=== PATIENT | female | born 1980 | race Caucasian/White ===

== ENCOUNTER → 2017-08-30 | Outpatient (CLI) | payer BC, OTHER | LOC: COL.RAD 12:14 | DX: R10.11 Right upper quadrant pain (principal); Z90.710 Acquired absence of both cervix and uterus ==

== ENCOUNTER 2024-07-31 08:50 | Day surgery (SDC) | payer OTHER ==
[~2024-07-31] VITALS: Ht 160 cm; Wt 93.3 kg
[2024-07-31] VITALS (12 sets, daily range): BP systolic 101–123; BP diastolic 59–79; PULSE 55–78; TEMP 98–98.5
[~2024-07-31 08:50] MED LIST: LR 1,000 ML IV SCH; Ondansetron 4 MG/2 ML VIAL IV PRN
--- NOTE | 2024-07-31 09:50 | NUR ---
Pt arrived with , states bowels are WNL for the procedure, VSS; reviewed and signed consents, no questions/concerns; reviewed and updated history/meds/pharm/allergies. IV placed to RH, x1 attempt, 20G, LR hanging. To await procedure.
[2024-07-31] MEDS ORDERED: CYMBALTA 60MG60 MG PO (09:52)
[2024-07-31] MEDS ORDERED: BENTYL 10MG10 MG/CAP PO (09:52)
[2024-07-31] MEDS ORDERED: Lidocaine PF 2% (20 MG/ML) 5 ML VIAL ONE (10:15)
[2024-07-31] MEDS ORDERED: dexAMETHasone 10 MG/ML VIAL IV ONE (11:00)
[2024-07-31] MEDS ORDERED: Albuterol 0.083% Neb Soln 2.5 MG/3 ML UD IH SCH (11:15)
[2024-07-31] MEDS ORDERED: fentaNYL 50 MCG/ML 2 ML VIAL IV PRN (12:15)
[2024-07-31] MEDS ORDERED: LORazepam 2 MG/ML 1 ML VIAL IV PRN (12:15)
--- NOTE | 2024-07-31 12:16 | NUR ---
thang came from [facility].patient alert and oriented x4. reports pain to right upper quadrant rating it 4/10. report feeling mildly nauseus, had a bowel movement. family at bedside. patient on room air. call light within reach. bed at lowest position.
[2024-07-31] MEDS ORDERED: Ondansetron 4 MG/2 ML VIAL IV PRN (13:15)
[2024-07-31 13:40] LABS: HEMATOCRIT 42.7 % (37.0-47.0); HEMOGLOBIN 14.4 g/dl (12.5-16.0); MEAN CELL VOLUME 92 fl (80.0-100.0); MEAN CORPUSCULAR HEMOGLOBIN 31 pg (27-31); MEAN CORPUSCULAR HGB CONC 34 g/dl (33.0-37.0); MEAN PLATELET VOLUME 9.4 fl (7.4-10.4); PLATELET COUNT 311 K/mm3 (130-400); RED BLOOD COUNT 4.64 M/mm3 (4.10-5.30); REDCELL DISTRIBUTION WIDTH-CV 12.5 % (11.5-14.5)
[2024-07-31 13:53] LABS: CALCIUM 9.6 mg/dL (8.4-10.2); CREATININE, serum 0.74 mg/dL (0.57-1.11); POTASSIUM 4.2 mEq/L (3.5-4.5)
--- NOTE | 2024-07-31 13:55 | NUR ---
1100- PT BACK FROM ENDO PROCEDURE VIA CART TO BAY 5. MONITORS ON AND ALARMS SET. 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 PT COUGHING QUITE A BIT. SPUTUM SUCTIONED. PT STILL HAVE RUQ PAIN. RESPIRATORY THERAPY AT BEDSIDE HELPING PT WITH A BREATHING TX. DECADRON GIVEN AT THIS TIME IV. CALL LIGHT WITHIN REACH. 1115- DR. CASEY AT BEDSIDE TALKING WITH PT AND . 1130- PT STILL COUGHING. VSS. AT CHAIRSIDE. NO NEEDS AT THIS TIME. 1145- GAVE REPORT TO NURSE ON THE MEDICAL FLOOR. PT WILL BE TRANSFERRING SOON. 1200- PT HAS BEEN TRANSFERRED OFF UNIT TO THE MEDICAL FLOOR. VSS AT THIS TIME. PT IS ALERT AND ORIENTED. IS FOLLOWING AT THIS TIME.
[2024-07-31] MEDS ORDERED: PEG3350/Sod Sulf,Bicarb,Cl/KCl Oral Soln 4,000 ML Bottle PO SCH (17:30)
--- NOTE | 2024-07-31 23:59 | NUR ---
patient lying in bed, alert and oriented x4. denies chest pain and shortness of breath. reports mild 5/10 pain in RUQ, refuses offered pain interventions at this time. continuing to complete drinking bowel prep, small soft but still formed stools being passed. pt aware of NPO status after midnight. no remarkable skin findings at this time. NG tube in place, clamped at this time. ambulating with steady gait. pt has no further needs, questions or concerns at this time.
[2024-08-01] VITALS (7 sets, daily range): BP systolic 105–136; BP diastolic 70–83; PULSE 60–67; TEMP 97.7–98.3
[2024-08-01] MEDS ORDERED: LR 1,000 ML IV SCH (07:00)
--- NOTE | 2024-08-01 08:30 | NUR ---
patient alert and orientes x4. denies pain at this time. patient ng tube inplace. patient reports feeling nauseous. having runny bowel movements with semi-form stool noted. patient call light within reach. bed at lowest position.
--- NOTE | 2024-08-01 10:47 | NUR ---
Initial visit; Patient thanked [employer] for stopping and introducing herself but declined spiritual care. Her was also present. [employer] wished them well.
[2024-08-01] MEDS ORDERED: Lidocaine PF 2% (20 MG/ML) 5 ML VIAL ONE (12:53)
--- NOTE | 2024-08-01 13:45 | NUR ---
PATIENT CAME BACK FROM ENDO. NG TUBE WAS REMOVED IN ENDO PER ENDO NURSE REPORT. PATIENT TAKEN TO MRI BY THIS NURSE TO GET MRCP.
--- NOTE | 2024-08-01 15:30 | NUR ---
PATIENT DENIES PAIN JUST SOME DISCOMFORT TO THE BACK OF HER THROAT. PATIENT DENIES NAUSEA AND ABLE TO EAT AND DRINK WITHOUT ANY DIFFICULTY. PATIENT ABLE TO URINATE WITHOUT DIFFICULTY.CALL LIGHT WITHIN REACH. BED AT LOWEST POSITION.
--- NOTE | 2024-08-01 15:48 | NUR ---
PATIENT DISCHARGE INSTRUCTIONS GIVEN. DENIED ANY FURTHER CONCERNS OR QUESTIONS. IV REMOVED FROM RIGHT HAND. PATIENT ESCORTED OUT OF UNIT BY PCT.
--- NOTE | 2024-08-01 16:38 | NUR ---
copy worker met with patient and her , Sam, P# [phone], to discuss discharge planning. Patient lives in [place]. PCP is currently Dr. Lambert but is looking at changing his doctor. Pharmacy is [facility] in [place]. No issues affording medications. Insurance is [employer]. No DPOA-HC and not currently interested in completing one. No DME. Patient reports to be independent with ADLS and has a form of transportation to get to and from appointments. Patient would like to return home at time of discharge. Discharge plan: home
== END 2024-08-01 16:05 | disposition home or self-care (01) ==
LOC: SDCO 08:50 → MEDICAL 08:50 → SDCO 10:30 → MEDICAL 12:23 → SDCO 08-01 16:05
PROVIDERS: Internal Medicine Gastroenterology
DX: K59.00 Constipation, unspecified (principal); R63.5 Abnormal weight gain; Z90.49 Acquired absence of other specified parts of digestive tract
CPT/HCPCS: OP; J1100; J2405; J2704; J2765; J7120

== ENCOUNTER 2024-08-16 11:40 | Emergency (ER) | payer OTHER ==
[~2024-08-16] VITALS: Ht 160 cm; Wt 95.5 kg
[~2024-08-16 11:40] MED LIST changes: +BENTYL 10MG10 MG/CAP PO; +CYMBALTA 60MG60 MG PO; -LR 1,000 ML IV SCH; -Ondansetron 4 MG/2 ML VIAL IV PRN
[2024-08-16 11:44] VITALS: BP 145/90; PULSE 58; TEMP 97.8
== END 2024-08-16 12:58 | disposition left against medical advice (07) ==
LOC: COL.ER 11:40
DX: R10.9 Unspecified abdominal pain (principal)